=== PATIENT | male | born 1975 | race Caucasian/White ===

== ENCOUNTER 2020-09-17 18:39 | Emergency (ER) | payer OTHER, SELFPAY ==
--- NOTE | ~2020-09-17 | CT_ITS ---
EXAMINATION: CT cervical spine wo con DATE: 09/17/2020 19:18 INDICATION: Paresthesia TECHNIQUE: Computed tomography (CT) of the cervical spine was performed without intravenous contrast. Automated exposure control and iterative reconstruction technique were employed. Exam dose: 378.35 mGy-cm total exam DLP. COMPARISON: None FINDINGS: C1 and C2 are normally aligned and the odontoid process is intact. No fracture or dislocation, locked facet or prevertebral soft tissue swelling. There is moderately severe degenerative disc disease and slight retrolisthesis at C6-7. There is approximately 1.5 mm anterolisthesis at C7-T1. There is severe degenerative change at the apophyseal joints at C7-T1, especially on the left.. IMPRESSION: Severe degenerative changes apophyseal joints at C7-T1 with associated approximately 1.5 mm anterolisthesis at this level Moderately severe degenerative disc disease and slight retrolisthesis at C6-7 Reviewed, dictated and finalized at [facility]. Reviewed, dictated and finalized at [facility]. IMPRESSION: Severe degenerative changes apophyseal joints at C7-T1 with associ ated approximately 1.5 mm anterolisthesis at this level Moderately severe degenerative disc disease and slight retrolisthesis at C6-7
[2020-09-17 18:44] VITALS: BP 181/90; PULSE 62; RESP 16; TEMP 35.7; O2SAT 100
[2020-09-17 18:48] VITALS: BP 180/115; PULSE 63; RESP 18; O2SAT 100
--- NOTE | 2020-09-17 19:05 | ED.GENADULT ---
HPI - General Adult General Chief complaint: Neck Pain/Injury Stated complaint: neck injury at work september 05 Time Seen by Provider: 09/17/20 18:53 Source: patient Mode of arrival: ambulatory Limitations: no limitations History of Present Illness HPI narrative: Patient 45-year-old male who presents with C6-7 neck pain since the beginning of September that began while trying to open an object requiring quite a bit of force denies any trauma to the neck or head but has since had aching pain that radiates down to the level of the arm at this point patient is not been seen for this complaint has not taken anything for his symptoms but denies similar occurrence in the past Related Data Allergies Allergy/AdvReac Type Severity Reaction Status Date / Time No Known Drug Allergies Allergy Unknown Unknown Verified 09/17/20 18:46 Review of Systems Review of Systems: All systems reviewed & are unremarkable except as noted in HPI and below PMFSH Past Medical History Medical History BMI 27.0-27.9,adult Family History Family History Father Heart disease Mother No problems noted. Sibling No problems noted. 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 HEAD: Normocephalic, atraumatic. EYES: PERRLA and EOMI. ENT: Nares clear, no rhinorrhea or epistaxis. Mucous membranes moist. NECK: Supple. No adenopathy or masses. CHEST: Clear to auscultation. No respiratory distress. No wheezes rales or rhonchi HEART: Regular rate and rhythm. No murmur heard. EXTREMITIES: Normal range of motion. No edema. Tenderness at the level of C6-7 on the left side no right-sided or midline tenderness SKIN: Warm, dry, no rash. NEURO: No focal deficits. Alert and oriented x3. Motor and sensory intact and symmetrical in extremities. Cranial nerves II through XII grossly intact PSYCH: Normal mood and affect. Course Course Emergency Course: Patient evaluated for paresthesias in the r left upper extremity found to have degenerative changes will be advised to follow with primary care for further evaluation and consideration of referrals if necessary patient agrees with this plan Vital Signs Vital signs: Vital Signs Temperature 96.2 F L 09/17/20 18:44 Pulse Rate 62 09/17/20 18:44 Respiratory Rate 16 09/17/20 18:44 Blood Pressure 181/90 H 09/17/20 18:44 Pulse Oximetry 100 09/17/20 18:44 Temperature 96.2 F L 09/17/20 18:44 Pulse Rate 63 09/17/20 18:48 Respiratory Rate 18 09/17/20 18:48 Blood Pressure 180/115 H 09/17/20 18:48 Pulse Oximetry 100 09/17/20 18:48 Medical Decision Making MDM Narrative Medical decision making narrative: Patients injury or pain is consistent with musculoskeletal etiology. No signs of neurological or vascular compromise on exam. Pain is felt appropriate for further evaluation on an outpatient basis. Vital Signs Vital Signs: Vital Signs Temperature 96.2 F L 09/17/20 18:44 Pulse Rate 62 09/17/20 18:44 Respiratory Rate 16 09/17/20 18:44 Blood Pressure 181/90 H 09/17/20 18:44 Pulse Oximetry 100 09/17/20 18:44 Temperature 96.2 F L 09/17/20 18:44 Pulse Rate 63 09/17/20 18:48 Respiratory Rate 18 09/17/20 18:48 Blood Pressure 180/115 H 09/17/20 18:48 Pulse Oximetry 100 09/17/20 18:48 Imaging Data Radiologist's impression: ITS Impressions Cervical Spine CT 09/17/20 19:25 IMPR
[2020-09-17] MEDS: KETOROLAC (*BKC) 60 MG/2 ML VIAL IM (19:25)
== END 2020-09-17 19:54 | disposition home or self-care (01) ==
PROVIDERS: Emergency Provider Emergency Medicine; PCP Family Medicine
DX: R20.2 Paresthesia of skin (principal); F17.210 Nicotine dependence, cigarettes, uncomplicated; F17.220 Nicotine dependence, chewing tobacco, uncomplicated; M50.323 Other cervical disc degeneration at C6-C7 level; M47.813 Spondylosis without myelopathy or radiculopathy, cervicothoracic region
CPT/HCPCS: 72125; 96372; 99284; J1885

== ENCOUNTER → 2020-09-28 13:19 | Outpatient (CLI) | payer OTHER, SELFPAY ==
--- NOTE | ~2020-09-28 | MR_ITS ---
EXAMINATION: MR cervical spine wo con EXAM DATE: 09/28/2020 14:48 INDICATION: Neck pain, left arm pain. States injury in September 2019. TECHNIQUE: Multi-sequential, multiplanar MR images of the cervical spine were obtained without contra st. Axial T2, axial T2 MERGE sequence. Sagittal T1, T2, T2 fat saturation images also obtained. Cor relation is made to CT neck 09/17/2020. FINDINGS: There is mild mid cervical disc disease. The vertebral bodies are aligned in the AP dimensi on. The spinal cord signal intensity and intrinsic morphology is normal. Cervicomedullary junction is normal in appearance. There are no suspicious marrow signal abnormalities. Paraspinal soft tissue is unremarkable. Level by level evaluation: C2-C3: Disc does not extend beyond the endplate margin. Uncovertebral joint arthropathy: Mild left. Facet joint arthropathy: Mild bilateral. Neural foraminal stenosis: Mild left. Central canal stenosis: No stenosis. C3-C4: There is a mild diffuse disc bulge. Uncovertebral joint arthropathy: Mild to moderate left, mild right. Facet joint arthropathy: Mild bilateral. Neural foraminal stenosis: Mild to moderate left. Central canal stenosis: Minimal . C4-C5: There is a mild diffuse disc bulge. Uncovertebral joint arthropathy: Moderate left, mild right. Facet joint arthropathy: Mild to moderate left, mild right. Neural foraminal stenosis: Mild to moderate left. Central canal stenosis: Mild. C5-C6: There is a mild diffuse disc bulge. Uncovertebral joint arthropathy: Moderate left, mild to moderate right. Facet joint arthropathy: Moderate left, mild to moderate right.. Neural foraminal stenosis: Mild to moderate left, mild right. Central canal stenosis: Mild. C6-C7: There is a mild to moderate diffuse disc bulge. Uncovertebral joint arthropathy: Moderate to severe left, moderate right. Facet joint arthropathy: Mild to moderate bilateral. Neural foraminal stenosis: Severe left, moderate to severe right. Central canal stenosis: Mild. C7-T1: There is a minimal diffuse disc bulge. Uncovertebral joint arthropathy: Moderate bilateral. Facet joint arthropathy: Severe left, mild right. Neural foraminal stenosis: Moderate left, mild right. Central canal stenosis: No stenosis. IMPRESSION: 1. Significant bilateral neural foraminal stenosis at C6-7. 2. Less spondylosis other levels. Reviewed, dictated and finalized at [facility].
== END ==
PROVIDERS: PCP Family Medicine; Visit Provider Nurse Practitioner Family
DX: M47.813 Spondylosis without myelopathy or radiculopathy, cervicothoracic region (principal)
CPT/HCPCS: 72141

== ENCOUNTER 2022-04-14 15:52 | Outpatient (CLI) | payer OTHER, SELFPAY ==
--- NOTE | ~2022-04-14 | CT_ITS ---
EXAMINATION: CT abdomen pelvis w con INDICATION: Left lower quadrant pain TECHNIQUE: Computed tomographic images of the abdomen and pelvis were obtained after the administrati on of 100 cc of Omnipaque 350 intravenous contrast. The dose-length product (DLP) was 832.79 mGy-cm. Automated exposure control and iterative reconstruction technique were employed. COMPARISON: None available FINDINGS: Minimal dependent atelectasis is present in the lung bases. The heart size is normal. The l iver, spleen, pancreas, gallbladder, and adrenal glands are normal. The kidneys are unremarkable. No pathologically enlarged abdominal or pelvic lymph nodes are identified. There is no free intraperiton eal gas or evidence of bowel obstruction. The appendix is normal. There is a tiny fat-containing umbi lical hernia. Mild lumbar spondylosis is noted. IMPRESSION: 1. No CT correlate for the patient's symptoms. Reviewed, dictated and finalized at [facility].
== END 2022-04-14 15:53 | disposition home or self-care (01) ==
LOC: ANHIMG 15:54
PROVIDERS: PCP Family Medicine; Visit Provider Nurse Practitioner Family
DX: R10.9 Unspecified abdominal pain (principal)
CPT/HCPCS: 74177; Q9967

== ENCOUNTER 2022-05-15 08:44 | Outpatient (CLI) | payer OTHER, SELFPAY ==
--- NOTE | ~2022-05-15 | XR_ITS ---
EXAMINATION: XR hip LT min 2V INDICATION: Left hip pain TECHNIQUE: Two views of the left hip are obtained. COMPARISON: 01/04/2015 FINDINGS: Bone alignment is normal. There is no fracture. Again noted is an os acetabula. The previou sly described dysplastic bump at the femoral head/neck junction is not definitely identified. IMPRESSION: 1. No acute osseous abnormality. Reviewed, dictated and finalized at location [facility]. [facility] [employer]
== END 2022-05-15 08:45 | disposition home or self-care (01) ==
LOC: ANHIMG 08:47
PROVIDERS: PCP Family Medicine; Visit Provider Nurse Practitioner Family
DX: M25.559 Pain in unspecified hip (principal)
CPT/HCPCS: 73502

== ENCOUNTER 2024-12-02 14:32 | Outpatient (CLI) | payer OTHER, SELFPAY ==
--- NOTE | ~2024-12-02 | XR_ITS ---
XR hip RT 2V w AP pelvis 12/02/2024 14:49 Indication: Right hip pain Procedure: AP pelvis and 2 views right hip Comparison: No prior studies for comparison. Findings: Pelvic rings intact. Sacral foramen are symmetric. No soft tissue abnormality. No foreign b odies. No fracture or traumatic malalignment. Impression: 1: No significant bone or joint abnormality. Reviewed, dictated and finalized at location [facility]. Impression: 1: No significant bone or joint abnormality.
== END 2024-12-02 14:33 | disposition home or self-care (01) ==
LOC: GOSHIMG 14:32
PROVIDERS: PCP Physician Assistant Surgical; Visit Provider Physician Assistant Surgical
DX: M25.551 Pain in right hip (principal)
CPT/HCPCS: 73502

== ENCOUNTER 2024-12-05 15:12 | Outpatient (CLI) | payer OTHER, SELFPAY ==
--- NOTE | ~2024-12-05 | US_ITS ---
US retroperitoneal comp 12/05/2024 15:34 Procedure: Realtime transabdominal ultrasound of the kidneys and bladder. Indication: Acute renal failure Comparison: No prior studies Findings: Renal echotexture is normal bilaterally without hydronephrosis, contour deforming mass or r enal calculus. The right kidney measures 9.7 cm and left kidney measures 11.3 cm. Bladder within nor mal limits. Impression: 1: Unremarkable renal ultrasound. No stones, masses or hydronephrosis. Reviewed, dictated and finalized at location [facility]. Impression: 1: Unremarkable renal ultrasound. No stones, masses or hydronephrosis.
== END 2024-12-05 15:13 | disposition home or self-care (01) ==
LOC: MICIMG 15:15
PROVIDERS: PCP Nurse Practitioner Adult Health; Visit Provider Nurse Practitioner Adult Health
DX: N17.9 Acute kidney failure, unspecified (principal)
CPT/HCPCS: 76770

== ENCOUNTER 2024-12-29 14:38 | Outpatient (CLI) | payer OTHER, SELFPAY ==
--- NOTE | ~2024-12-29 | CT_ITS ---
CT of the Abdomen and Pelvis: Indication: Acute renal failure Technique: 2.5 mm axial scans were obtained through the abdomen and pelvis prior to and following fo llowing intravenous administration of 100 cc of Omnipaque 350. Dose reduction technique was used on t his scan by utilizing automated exposure control and iterative reconstruction technique. The dose-nigel gth product (DLP) was 1217.68 mGy-cm. COMPARISON: 04/14/2022 Findings: Scans through the lung bases are unremarkable. The liver, spleen, pancreas, gallbladder, adrenals and kidneys are within normal limits. No evidence of aortic aneurysm. No lymphadenopathy. No bowel obstruction or bowel wall thickening. There is no evidence to suggest acute appendicitis. Images through the pelvis were performed. Urinary bladder unremarkable. No pelvic mass seen. No ascit es. Impression: No significant abnormalities seen. Reviewed, dictated and finalized at [facility]. Impression: No significant abnormalities seen.
[2024-12-29 15:08] LABS: Estimated Glomerular Filt Rate 50
== END 2024-12-29 14:39 | disposition home or self-care (01) ==
PROVIDERS: PCP Nurse Practitioner Adult Health; Visit Provider Nurse Practitioner Adult Health
DX: N17.9 Acute kidney failure, unspecified (principal)
CPT/HCPCS: 74178; Q9967